=== PATIENT | female | born 1990 | race Caucasian/White ===

== ENCOUNTER 2021-09-18 09:38 | Inpatient (IN) ==
[2021-09-18] MEDS ORDERED: Famotidine 20 MG/2 ML VIAL IVP ONE (09:54)
[2021-09-18] MEDS ORDERED: Metoclopramide 10 MG/2 ML VIAL IVP ONE (09:54)
[2021-09-18] MEDS ORDERED: Ringers Solution, Lactated 1,000 ML IVC ONE (09:54)
[2021-09-18] MEDS ORDERED: CeFAZolin Syr 3,000MG/30 ML 3,000 MG/30 ML SYRINGE IVPB ONE (09:54)
[2021-09-18] MEDS ORDERED: Oxytocin 20 units/ LR 1000 mL 20 UNIT/1,000 ML BAG IVC ONE (09:54)
[2021-09-18] MEDS ORDERED: Oxytocin 20 units/ LR 1000 mL 20 UNIT/1,000 ML BAG IVC SCH ×2 (10:00→16:52)
[2021-09-18] MEDS ORDERED: Ringers Solution, Lactated 1,000 ML IVC SCH (10:00)
[2021-09-18 10:45] LABS: Basophils % 0.3 %; Eosinophils # 0.1 K/mcL (0.0-0.6); Eosinophils % 0.9 %; Hematocrit 33.9 % (35.3-44.9); Hemoglobin 11.2 g/dL (11.5-15.4); Immature Granulocytes % 0.7 % (0-4); Lymphocytes # 2.1 K/mcL (0.6-4.6); Lymphocytes % 13.9 %; Mean Corpuscular Hemoglobin 27.2 pg (28.0-33.3); Mean Corpuscular Volume 82.3 fL (83.0-100.0); Mean Platelet Volume 10.8 fL (9.4-12.4); Monocytes # 0.8 K/mcL (0.0-1.3); Monocytes % 5.1 %; Neutrophils # 12.1 K/mcL (1.6-8.9); Platelet Count 235 K/mcL (140-400); Red Blood Count 4.12 M/mcL (3.82-4.97); Red Cell Distribution Width 13.8 % (11.5-14.5); Segmented Neutrophils % 79.1 %; White Blood Count 15.2 K/mcL (4.3-11.1)
[2021-09-18 11:05] LABS: Alanine Aminotransferase 95 Units/L (7-52); Aspartate Amino Transferase 116 Units/L (13-39); BUN/Creatinine Ratio 18 (6-26); Blood Urea Nitrogen 9 mg/dL (6-20); Lactate Dehydrogenase 163 Units/L (140-271); eGFR For African Americans > 60 (> 60); eGFR For Non-African Americans > 60 (> 60)
[2021-09-18 11:21] LABS: Influenza A PCR Negative (Negative); Influenza B PCR Negative (Negative); Resp. Syncytial Virus PCR Negative (Negative)
[2021-09-18] MEDS ORDERED: *HR* Morphine Sulfate/PF 10 MG/10 ML AMPUL ONE (11:23)
[2021-09-18] MEDS ORDERED: *HR* FentaNYL (PF) 100 MCG/2 ML VIAL ONE (11:24)
[2021-09-18] MEDS ORDERED: *HR* Phenylephrine 10 MG/ML VIAL ONE (11:26)
[2021-09-18 11:30] LABS: SARS-CoV-2 by PCR (In House) Negative (Negative)
[2021-09-18 11:58] LABS: Protein/Creatinine Ratio,Urine 0.14 mg/mg (0.00-0.20)
[2021-09-18] MEDS ORDERED: Ringers Solution, Lactated 1,000 ML ONE (12:27)
[2021-09-18] MEDS ORDERED: Ondansetron 4 MG/2 ML VIAL ONE (12:34)
[2021-09-18] MEDS ORDERED: Ketorolac 30 MG/ML VIAL ONE (12:37)
[2021-09-18] MEDS ORDERED: Promethazine 6.25 MG in Water for inj. (sterile) 20 ML IVPB PRN (12:43)
[2021-09-18] MEDS ORDERED: Ondansetron 4 MG/2 ML VIAL IVP PRN ×2 (12:43→16:52)
[2021-09-18] MEDS ORDERED: Naloxone 0.4 MG/ML INJ IVP PRN (12:43)
[2021-09-18] MEDS ORDERED: *HR* OxyCODONE Immed Rel 5 MG TABLET PO PRN (12:43)
[2021-09-18] MEDS ORDERED: *HR* FentaNYL (PF) 100 MCG/2 ML VIAL IVP PRN (12:43)
[2021-09-18] MEDS ORDERED: *HR* Oxytocin 10 UNIT/ML VIAL IM ONE (12:50)
[2021-09-18] MEDS ORDERED: Acetaminophen IV 1,000 MG/100 ML BAG IVPB ONE (13:05)
[2021-09-18] MEDS ORDERED: *HR* Nalbuphine 10 MG/ML AMPUL IV PRN ×2 (14:35→17:07)
[2021-09-18] MEDS ORDERED: Metoclopramide 10 MG/2 ML VIAL IVP PRN (16:52)
[2021-09-18] MEDS ORDERED: levETIRAcetam 250 MG TABLET PO SCH (16:52)
[2021-09-18] MEDS ORDERED: RIZATRIPTAN BENZOATE 10 MG PO PRN (17:36)
[2021-09-18] MEDS: Acetaminophen 325 MG TABLET PO SCH (18:07)
[2021-09-18] MEDS: levETIRAcetam 250 MG TABLET PO SCH (19:13)
[2021-09-18] MEDS: Simethicone 80 MG TAB.CHEW PO SCH (20:14)
[2021-09-18] MEDS: Ketorolac 30 MG/ML VIAL IVP SCH (20:39)
[2021-09-19] MEDS: Acetaminophen 325 MG TABLET PO SCH ×4 (00:04→19:43)
[2021-09-19] MEDS: Ketorolac 30 MG/ML VIAL IVP SCH (00:05)
[2021-09-19 04:40] LABS: Basophils % 0.3 %; Eosinophils # 0.2 K/mcL (0.0-0.6); Eosinophils % 1.2 %; Hematocrit 31.5 % (35.3-44.9); Immature Granulocytes % 0.5 % (0-4); Lymphocytes # 2.3 K/mcL (0.6-4.6); Mean Corpuscular HGB Conc 31.7 g/dL (31.6-35.5); Mean Corpuscular Volume 84.9 fL (83.0-100.0); Mean Platelet Volume 10.9 fL (9.4-12.4); Monocytes # 1.1 K/mcL (0.0-1.3); Monocytes % 8.1 %; Neutrophils # 9.3 K/mcL (1.6-8.9); Platelet Count 213 K/mcL (140-400); Red Blood Count 3.71 M/mcL (3.82-4.97); Red Cell Distribution Width 13.9 % (11.5-14.5); Segmented Neutrophils % 71.9 %
[2021-09-19] MEDS: levETIRAcetam 250 MG TABLET PO SCH ×2 (06:46→19:44)
[2021-09-19] MEDS: Ibuprofen 600 MG TABLET PO SCH ×3 (06:47→19:43)
[2021-09-19] MEDS: *HR* OxyCODONE Immed Rel 5 MG TABLET PO PRN ×2 (08:23→19:42)
[2021-09-19] MEDS: Prenatal Vit/FA 1 EACH TABLET PO SCH (08:23)
[2021-09-19] MEDS: Simethicone 80 MG TAB.CHEW PO SCH ×2 (08:23→19:43)
[2021-09-19] MEDS: *HR* Enoxaparin 80 MG/0.8 ML SYRINGE SQ SCH ×2 (08:25→19:44)
[2021-09-19 20:41] VITALS: BP 127/84; PULSE 69; TEMP 97.8; O2SAT 99
[2021-09-20] MEDS: *HR* OxyCODONE Immed Rel 5 MG TABLET PO PRN ×2 (00:24→05:19)
[2021-09-20] MEDS: Ibuprofen 600 MG TABLET PO SCH ×2 (02:45→07:55)
[2021-09-20] MEDS: Acetaminophen 325 MG TABLET PO SCH (02:45)
[2021-09-20] MEDS: Prenatal Vit/FA 1 EACH TABLET PO SCH (07:55)
[2021-09-20] MEDS: levETIRAcetam 250 MG TABLET PO SCH (07:55)
[2021-09-20] MEDS: Simethicone 80 MG TAB.CHEW PO SCH (07:56)
[2021-09-20] MEDS: *HR* Enoxaparin 80 MG/0.8 ML SYRINGE SQ SCH (07:56)
== END 2021-09-20 12:33 | disposition home or self-care (01) | DRG 539 ==
LOC: SAMDAY 09:38 → 1NENULAB 09:39 → 1NENUOBS 16:51
PROVIDERS: ADMIT Obstetrics & Gynecology; ATTEND Obstetrics & Gynecology